=== PATIENT | male | born 1990 | race Caucasian/White ===

== ENCOUNTER → 2018-07-15 | Outpatient (CLI) | payer OTHER ==
[~2018-07-15] MED LIST: Bactrim Ds Tab1 EACH PO; CEPH500 PO; CLAR500 PO; CODACE30 PO; CRUTCH USE; CRUTCH4 USE; HYDACE5 PO; HYDGUAL120 PO; HYDMOR2 PO; IBUP800 PO; OXYACE5T PO; PENVK500 PO; PRED10 PO; PROM25S PR; RXCYCL10 PO; RXHYDACE PO; RXHYDGUAS PO
[2018-07-17 09:14] LABS: HIV SCREEN 4TH GENERATION WRFX Non Reactive (Non Reactive)
[2018-07-18 02:10] LABS: HBSAG SCREEN Negative (Negative); HEP A AB, IGM Negative (Negative); HEP B CORE AB, IGM Negative (Negative); HEP C VIRUS AB >11.0 (0.0-0.9)
== END | disposition home or self-care (01) ==
LOC: LAB EV 12:10 → LAB SHORT 12:10
PROVIDERS: General Practice
DX: R36.9 Urethral discharge, unspecified (principal)
CPT/HCPCS: 80074; 86592; 87389

== ENCOUNTER 2019-01-23 19:53 | Emergency (ER) | payer OTHER ==
[~2019-01-23] VITALS: Ht 182.9 cm; Wt 104.3 kg
== END 2019-01-23 20:21 | disposition home or self-care (01) ==
LOC: ER 19:53
DX: S61.211A Laceration without foreign body of left index finger without damage to nail, initial encounter (principal); Z23 Encounter for immunization; F17.210 Nicotine dependence, cigarettes, uncomplicated; X18.XXXA Contact with other hot metals, initial encounter
CPT/HCPCS: 90471; 90714; 99282-25